=== PATIENT | male | born 1945 | race Caucasian/White ===

== ENCOUNTER 2019-05-18 09:10 | Emergency (ER) | payer MEDICARE ==
[~2019-05-18] VITALS: Ht 188 cm; Wt 92.1 kg
[2019-05-18 09:16] VITALS: Ht 188 cm; Wt 92.1 kg
[2019-05-18 09:51] LABS: CALCIUM 8.8 mg/dL (8.5-10.1); CHLORIDE SERUM 106 mmol/L (98-107); CREATININE SERUM 1.1 mg/dL (0.7-1.3); GLUCOSE SERUM 120 mg/dL (74-106); POTASSIUM SERUM 4.2 mmol/L (3.5-5.1); SODIUM SERUM 142 mmol/L (136-145)
[2019-05-18 09:56] LABS: BASOPHIL % 0.4 % (0-2)
[2019-05-18 09:57] LABS: PLATELET COUNT 126 x10^3mcL (130-400); RED CELL DISTRIBUTION WIDTH 16.8 % (11.5-14.5)
[2019-05-18 11:23] VITALS: BP 138/68
== END 2019-05-18 11:23 | disposition home or self-care (01) ==
LOC: ED 09:10
PROVIDERS: Student in an Organized Health Care Education/Training Program
DX: J44.9 Chronic obstructive pulmonary disease, unspecified (principal); I10 Essential (primary) hypertension
CPT/HCPCS: 36415; 83880; 87804; J7512; J7613; J7644; Q0092

== ENCOUNTER 2019-06-27 12:39 | Emergency (ER) | payer MEDICARE ==
[~2019-06-27] VITALS: Ht 167.6 cm; Wt 74.8 kg
[2019-06-27 12:52] VITALS: Ht 167.6 cm; Wt 74.8 kg
[2019-06-27 14:28] LABS: BASOPHIL % 0.3 % (0-2); PLATELET COUNT 84 x10^3mcL (130-400); RED CELL DISTRIBUTION WIDTH 15.3 % (11.5-14.5)
[2019-06-27 14:46] LABS: CALCIUM 7.8 mg/dL (8.5-10.1); CARBON DIOXIDE 31.6 mmol/L (21-32); CHLORIDE SERUM 107 mmol/L (98-107); CREATININE SERUM 1.4 mg/dL (0.7-1.3); GLUCOSE SERUM 93 mg/dL (74-106); POTASSIUM SERUM 3.5 mmol/L (3.5-5.1); SODIUM SERUM 142 mmol/L (136-145)
[2019-06-27 14:51] LABS: ALKALINE PHOSPHATASE 61 U/L (46-116); ALT/SGPT 10 U/L (16-63); AST/SGOT 14 U/L (15-37); BILIRUBIN TOTAL 0.4 mg/dL (0.20-1.00); HDL CHOLESTEROL 40 mg/dL (40-60)
[2019-06-27 14:53] LABS: ALBUMIN 2.8 g/dL (3.4-5.0); CHOLESTEROL 120 mg/dL (<200); TOTAL PROTEIN, SERUM 5.7 g/dL (6.4-8.2)
[2019-06-27 16:47] VITALS: BP 140/65
== END 2019-06-27 16:52 | disposition home or self-care (01) ==
LOC: ED 12:39
PROVIDERS: Emergency Medicine
DX: R55 Syncope and collapse (principal); E86.0 Dehydration; B34.9 Viral infection, unspecified; D70.9 Neutropenia, unspecified; D69.6 Thrombocytopenia, unspecified; J45.909 Unspecified asthma, uncomplicated; I10 Essential (primary) hypertension; Z85.01 Personal history of malignant neoplasm of esophagus
CPT/HCPCS: Q0092

== ENCOUNTER 2019-08-16 22:57 | Emergency (ER) | payer MEDICARE, OTHER ==
[~2019-08-16] VITALS: Ht 188 cm; Wt 81.2 kg
[~2019-08-16 22:57] MED LIST: ASPIRIN ADULT L81 M5 PO; LIPITOR40 MG PO; PROAIR RES117 MCG/Ac IH
[2019-08-16 23:00] VITALS: Ht 188 cm; Wt 81.2 kg
[2019-08-16 23:45] LABS: BASOPHIL % 0.5 % (0-2)
[2019-08-16 23:47] LABS: PLATELET COUNT 102 x10^3mcL (130-400); RED CELL DISTRIBUTION WIDTH 15.6 % (11.5-14.5)
[2019-08-16 23:55] LABS: CALCIUM 8.6 mg/dL (8.5-10.1); CARBON DIOXIDE 27.8 mmol/L (21-32); CHLORIDE SERUM 106 mmol/L (98-107); CREATININE SERUM 1.4 mg/dL (0.7-1.3); GLUCOSE SERUM 84 mg/dL (74-106); POTASSIUM SERUM 3.8 mmol/L (3.5-5.1); SODIUM SERUM 143 mmol/L (136-145)
[2019-08-17] LABS: ALBUMIN 3.5 g/dL (3.4-5.0); ALKALINE PHOSPHATASE 59 U/L (46-116); ALT/SGPT 10 U/L (16-63); AST/SGOT 19 U/L (15-37); BILIRUBIN TOTAL 0.7 mg/dL (0.20-1.00); TOTAL PROTEIN, SERUM 5.9 g/dL (6.4-8.2)
[2019-08-17 00:48] VITALS: BP 120/60
[2019-08-17] MEDS ORDERED: AMO500 PO (11:30)
== END 2019-08-17 00:49 | disposition home or self-care (01) ==
LOC: ED 22:57
PROVIDERS: Emergency Medicine
DX: I10 Essential (primary) hypertension (principal); J45.909 Unspecified asthma, uncomplicated; Z85.01 Personal history of malignant neoplasm of esophagus
CPT/HCPCS: 36415; 83880; Q0092

== ENCOUNTER 2019-08-18 00:56 | Inpatient (IN) | payer MEDICARE, OTHER ==
[~2019-08-18] VITALS: Ht 188 cm; Wt 80.3 kg
[~2019-08-18 00:56] MED LIST changes: +AMO500 PO
[2019-08-18 01:06] VITALS: Ht 188 cm; Wt 80.3 kg
[2019-08-18 01:46] LABS: BASOPHIL % 0.5 % (0-2); PLATELET COUNT 111 x10^3mcL (130-400); RED CELL DISTRIBUTION WIDTH 15.2 % (11.5-14.5)
[2019-08-18 01:55] LABS: CALCIUM 9.1 mg/dL (8.5-10.1); CHLORIDE SERUM 106 mmol/L (98-107); CREATININE SERUM 1.6 mg/dL (0.7-1.3); GLUCOSE SERUM 88 mg/dL (74-106); POTASSIUM SERUM 3.8 mmol/L (3.5-5.1); SODIUM SERUM 141 mmol/L (136-145)
[2019-08-18 02:10] LABS: ALBUMIN 3.6 g/dL (3.4-5.0); ALKALINE PHOSPHATASE 61 U/L (46-116); ALT/SGPT 9 U/L (16-63); AST/SGOT 27 U/L (15-37); BILIRUBIN TOTAL 0.63 mg/dL (0.20-1.00); CHOLESTEROL 133 mg/dL (<200); TOTAL PROTEIN, SERUM 6.3 g/dL (6.4-8.2)
[2019-08-18 03:19] LABS: microscopic required? NO
[2019-08-18 03:34] LABS: urine erythrocyte NEGATIVE (NEGATIVE)
[2019-08-18 03:45] LABS: AMPHETAMINE QUAL UR NONE DETECTED (See below)
[2019-08-18 04:34] VITALS: BP 157/72
[2019-08-18 10:00] VITALS: BP 153/77
[2019-08-18 14:30] VITALS: BP 143/70
[2019-08-18 18:15] VITALS: BP 153/78
[2019-08-18 20:40] VITALS: BP 184/95
[2019-08-18 22:30] VITALS: BP 152/79
[2019-08-19 06:32] VITALS: BP 170/84
[2019-08-19 07:06] LABS: BASOPHIL % 0.1 % (0-2)
[2019-08-19 07:14] LABS: PLATELET COUNT 115 x10^3mcL (130-400); RED CELL DISTRIBUTION WIDTH 15.2 % (11.5-14.5)
[2019-08-19 07:21] LABS: CALCIUM 8.8 mg/dL (8.5-10.1); CARBON DIOXIDE 24.4 mmol/L (21-32); CHLORIDE SERUM 109 mmol/L (98-107); CREATININE SERUM 1.3 mg/dL (0.7-1.3); GLUCOSE SERUM 92 mg/dL (74-106); PHOSPHOROUS 2.6 mg/dL (2.5-4.9); POTASSIUM SERUM 3.8 mmol/L (3.5-5.1); SODIUM SERUM 143 mmol/L (136-145)
[2019-08-19] MEDS ORDERED: AZELASTINE137 MCG/Ac NS (11:55)
[2019-08-19] MEDS ORDERED: BENZTROPINE ME0.5 MG PO (11:57)
[2019-08-19] MEDS ORDERED: CARBIDOPA AND L1 TER PO (12:00)
[2019-08-19] MEDS ORDERED: SINEMET 25-2501 TAB PO (12:03)
[2019-08-19] MEDS ORDERED: PLAVIX75 M1 PO (12:05)
[2019-08-19] MEDS ORDERED: ARICEPT5 MG PO (12:06)
[2019-08-19] MEDS ORDERED: PROSCAR5 MG PO (12:07)
[2019-08-19] MEDS ORDERED: PEPCID AC20 M2 PO (12:07)
[2019-08-19] MEDS ORDERED: LEVOXYL150 MCG PO (12:08)
[2019-08-19] MEDS ORDERED: LOSARTAN POTASS1 TA6 PO (12:09)
[2019-08-19] MEDS ORDERED: NUPLAZID34 MG PO (12:09)
[2019-08-19] MEDS ORDERED: OLANZAPINE5 M2 PO (12:10)
[2019-08-19] MEDS ORDERED: OMEPRAZOLE MAGN20 M1 PO (12:11)
[2019-08-19] MEDS ORDERED: SEROQUEL50 M1 PO (12:11)
[2019-08-19] MEDS ORDERED: SENNA8.6 M2 PO (12:12)
[2019-08-19] MEDS ORDERED: TAMSULOSIN HCL0.4 MG PO (12:12)
[2019-08-19] MEDS ORDERED: TRAZODONE100 MG PO (12:13)
[2019-08-19 12:20] VITALS: BP 154/80
[2019-08-19 20:44] VITALS: BP 135/81
[2019-08-20 06:32] VITALS: BP 131/87
[2019-08-20 06:32] LABS: BASOPHIL % 0.3 % (0-2)
[2019-08-20 06:43] LABS: CARBON DIOXIDE 25.1 mmol/L (21-32); CHLORIDE SERUM 109 mmol/L (98-107); GLUCOSE SERUM 100 mg/dL (74-106); MAGNESIUM 1.9 mg/dL (1.8-2.4); PHOSPHOROUS 2.2 mg/dL (2.5-4.9); POTASSIUM SERUM 3.5 mmol/L (3.5-5.1); SODIUM SERUM 143 mmol/L (136-145)
[2019-08-20 06:49] LABS: PLATELET COUNT 108 x10^3mcL (130-400); RED CELL DISTRIBUTION WIDTH 16.2 % (11.5-14.5)
[2019-08-20 07:01] VITALS: BP 160/85
[2019-08-20 09:18] VITALS: BP 125/52
[2019-08-20 14:31] VITALS: BP 121/56
[2019-08-20 16:24] VITALS: BP 128/71
[2019-08-20 21:40] VITALS: BP 159/82
[2019-08-21 06:30] VITALS: BP 163/79
[2019-08-21 06:30] LABS: BASOPHIL % 0.4 % (0-2)
[2019-08-21 06:33] LABS: PLATELET COUNT 81 x10^3mcL (130-400); RED CELL DISTRIBUTION WIDTH 16.1 % (11.5-14.5)
[2019-08-21 08:03] LABS: CALCIUM 7.5 mg/dL (8.5-10.1); CARBON DIOXIDE 22.8 mmol/L (21-32); CHLORIDE SERUM 113 mmol/L (98-107); CREATININE SERUM 0.9 mg/dL (0.7-1.3); GLUCOSE SERUM 80 mg/dL (74-106); SODIUM SERUM 145 mmol/L (136-145)
[2019-08-21 08:50] VITALS: BP 156/80
[2019-08-21 14:26] VITALS: BP 149/76
[2019-08-21 17:37] VITALS: BP 153/78
[2019-08-21 19:35] VITALS: BP 139/65
[2019-08-22 05:10] VITALS: BP 155/73
[2019-08-22 06:33] LABS: CALCIUM 8.5 mg/dL (8.5-10.1); CHLORIDE SERUM 109 mmol/L (98-107); CREATININE SERUM 1.1 mg/dL (0.7-1.3); GLUCOSE SERUM 85 mg/dL (74-106); POTASSIUM SERUM 3.8 mmol/L (3.5-5.1); SODIUM SERUM 142 mmol/L (136-145)
[2019-08-22 06:34] LABS: BASOPHIL % 0.4 % (0-2)
[2019-08-22 06:50] LABS: PLATELET COUNT 92 x10^3mcL (130-400)
[2019-08-22 08:17] VITALS: BP 142/63
[2019-08-22 17:22] VITALS: BP 121/57
[2019-08-22 20:08] VITALS: BP 127/82
[2019-08-23 06:17] VITALS: BP 151/80
[2019-08-23 06:39] LABS: BASOPHIL % 0.6 % (0-2)
[2019-08-23 06:45] LABS: CALCIUM 8.2 mg/dL (8.5-10.1); CHLORIDE SERUM 110 mmol/L (98-107); GLUCOSE SERUM 79 mg/dL (74-106); POTASSIUM SERUM 3.5 mmol/L (3.5-5.1); SODIUM SERUM 144 mmol/L (136-145)
[2019-08-23 07:36] VITALS: BP 180/88
[2019-08-23 07:50] LABS: PLATELET COUNT 86 x10^3mcL (130-400); RED CELL DISTRIBUTION WIDTH 15.9 % (11.5-14.5)
[2019-08-23] MEDS ORDERED: QUETIAPINE FUMA25 M1 PO ×2 (09:16)
[2019-08-23 09:52] VITALS: BP 157/84
[2019-08-23 13:04] VITALS: BP 157/84
[2019-08-23 13:30] VITALS: BP 123/61
== END 2019-08-23 14:13 | DRG 56 ==
LOC: ED 00:56 → MU 03:06 → DU 03:06 → MU 08-21 11:59
PROVIDERS: Family Medicine; Specialist; ADMIT Student in an Organized Health Care Education/Training Program
DX: G20 Parkinson's disease (principal); N17.0 Acute kidney failure with tubular necrosis; F23 Brief psychotic disorder; F02.80 Dementia in other diseases classified elsewhere, unspecified severity, without behavioral disturbance, psychotic disturbance, mood disturbance, and anxiety; I10 Essential (primary) hypertension; J45.909 Unspecified asthma, uncomplicated; D64.9 Anemia, unspecified; E87.6 Hypokalemia; Z11.59 Encounter for screening for other viral diseases
CPT/HCPCS: 36600; G0378; G0480; J0360; J3480; J3490; J7030; Q0092